=== PATIENT | female | born 1980 | race African-American/Black ===

== ENCOUNTER 2018-01-13 03:11 | Emergency (ER) | payer BC ==
[~2018-01-13] VITALS: Ht 157.5 cm; Wt 135.6 kg
[2018-01-13 03:15] VITALS: BP 117/50
[2018-01-13] MEDS ORDERED: Albuterol ud Inhalation HHN ONE (03:45)
[2018-01-13] MEDS ORDERED: Tylenol #3 tab (300mg/30mg) ORAL ONE (03:45)
[2018-01-13 04:15] VITALS: BP 105/56
[2018-01-13] MEDS ORDERED: ACETAMINOPHEN-1 EAC1 ORAL (04:34)
[2018-01-13] MEDS ORDERED: FLONASE ALLERG9.9 ML NS (04:34)
[2018-01-13] MEDS ORDERED: PREDNISONE20 MG ORAL (04:34)
[2018-01-13] MEDS ORDERED: Promethazine/DM 6.25mg/5ml ORAL PRN (04:45)
[2018-01-13 05:05] VITALS: BP 105/56
--- NOTE | 2018-01-13 05:06 | Emergency Room Report ---
History of Present Illness General Chief Complaint: Dyspnea/Respdistress Source: Patient Present Illness HPI 29-year-old female presents with sinus congestion, postnasal drip, sore throat and shortness of breath. Patient has been using her home albuterol nebulizer without much improvement, requesting steroids. Denies fever, chills. States she did not get the flu vaccine because of the eggs in the vaccine. Denies the contacts Allergies: Coded Allergies: ASPIRIN (Verified Allergy, Unknown, 01/13/18) CLARITHROMYCIN (Verified Allergy, Unknown, 01/13/18) PENICILLINS (Verified Allergy, Unknown, 01/13/18) Patient History Past Medical History: asthma Past Surgical History: none Pertinent Family History: none Last Menstrual Period: unknown Now: No Immunizations: UTD Reviewed Nursing Documentation: PMH: Agreed, PSxH: Agreed Nursing Documentation-PMH Hx Asthma: Yes Review of Systems All Other Systems: negative except mentioned in HPI Physical Exam Vital Signs Date Time Temp Pulse Resp B/P (MAP) Pulse Ox O2 Delivery O2 Flow Rate FiO2 01/13/18 03:15 85 12 Room Air 01/13/18 03:15 98.1 117/50 100 98.1 01/13/18 03:50 21 Sp02 EP Interpretation: reviewed, normal General Appearance: normal inspection, well appearing, no apparent distress, alert, GCS 15, non-toxic, obese Head: normocephalic, atraumatic Eyes: bilateral eye PERRL, bilateral eye EOMI ENT: normal ENT inspection, hearing grossly normal, normal pharynx, no angioedema, normal voice, TMs + canals normal, uvula midline, moist mucus membranes, nasal congestion Neck: normal inspection, full range of motion, supple, thyroid normal, no meningismus, no bony tend Respiratory: normal inspection, lungs clear, normal breath sounds, no rhonchi, no respiratory distress, no retraction, no accessory muscle use, no wheezing, speaking full sentences Cardiovascular #1: regular rate, rhythm, no edema, no JVD, normal capillary refill Gastrointestinal: normal inspection, normal bowel sounds, non tender, soft, no mass, no peritonitis, non-distended, no guarding, no hernia, no pulsatile mass Genitourinary: no CVA tenderness Musculoskeletal: normal inspection, back normal, normal range of motion, no calf tenderness, pelvis stable, Jayshree's Sign negative Neurologic: normal inspection, alert, oriented x3, responsive, sr. social media & mobile manager III-XII nml as tested, motor strength/tone normal, cerebellar normal, normal gait, speech normal Psychiatric: normal inspection, judgement/insight normal, mood/affect normal, no suicidal/homicidal ideation, no delusions Skin: normal inspection, normal color, no rash Lymphatic: normal inspection, no adenopathy Medical Decision Making Diagnostic Impression: Primary Impression: URI (upper respiratory infection) Qualified Codes: J06.9 - Acute upper respiratory infection, unspecified ER Course Symptoms of nasal congestion, erythema in the oropharynx consistent with URI, congestion Vital signs are stable, afebrile Lungs clear to auscultation, no wheezing Was given one albuterol, and prednisone to prevent URI from causing asthma exacerbation Also given Tylenol with codeine, and cough syrup in the ER Advised Neti pot saline rinse her sinuses, and other symptomatic treatment Prednisone for 3 days ER course: Patient has remained stable during ED stay. Disposition: Patient is to be discharged to home. Prescriptions given are prednisone, T3# Patient is instructed to follow up with their primary care doctor within 5 days. Strict return precautions discussed with patient such as fever, chills, worsening/severe pain, nausea, vomiting, which may indicate severe illness. Patient verbalizes understanding and agrees with plan. Please note that this Emergency Department Report was dictated using [employer] technology software, occasionally this can lead to erroneous entry secondary to interpretation by the dictation equipment Chest X-Ray Diagnostic Results Chest X-Ray Diagnostic Results : Chest X-Ray Ordered: Yes # of Views/Limited/Complete: 1 View Indication: Shortness of Breath EP Interpretation: Yes Interpretation: no consolidation, no effusion, no pneumothorax, no acute cardiopulmonary disease Impression: No acute disease Electronically Signed by: Dr Alaina Rodriguez MD Last Vital Signs Date Time Temp Pulse Resp B/P (MAP) Pulse Ox O2 Delivery O2 Flow Rate FiO2 01/13/18 04:02 86 18 100 Room Air 21 01/13/18 03:15 98.7 117/50 98.8 Status: improved Disposition: HOME, SELF-CARE Condition: Improved Scripts Fluticasone Propionate (Flonase Allergy Relief) 9.9 Ml [place].susp 9.9 ML NS BID for congestion for 7 Days, #1 UNIT Prov: ALAINA RODRIGUEZ M.D. 01/13/18 Acetaminophen With Codeine (T#3) (TYLENOL #3 TAB*) Y Tab 1 TAB ORAL Q8H Y for For Cough for 7 Days, #20 TAB Prov: ALAINA RODRIGUEZ M.D. 01/13/18 Prednisone* (PREDNISONE*) 20 Mg Tablet 40 MG ORAL DAILY for 3 Days, #6 TAB Prov: ALAINA RODRIGUEZ M.D. 01/13/18 Referrals: NOT CHOSEN IPA/,REFERRING (PCP) Patient Instructions: Upper Respiratory Infection, Adult, [id number] ALAINA RODRIGUEZ M.D. Jan 13, 2018 05:06
--- NOTE | 2018-01-13 10:23 | Diagnostic Imaging Report ---
Indication: Shortness of breath Technique: One view of the chest Comparison: none Findings: Body habitus somewhat limits evaluation. Lungs and pleural spaces are clear. The heart size is normal. Impression: No acute process
== END 2018-01-13 05:05 | disposition home or self-care (01) ==
LOC: EMR 04:57
DX: J06.9 Acute upper respiratory infection, unspecified (principal); J45.909 Unspecified asthma, uncomplicated; Z88.6 Allergy status to analgesic agent; Z88.0 Allergy status to penicillin; Z88.1 Allergy status to other antibiotic agents
CPT/HCPCS: 71045; 94640; 94664; 99284; J7512